=== PATIENT | female | born 1950 ===

== ENCOUNTER 2017-11-18 12:09 | Emergency (ER) | payer OTHER ==
[~2017-11-18] VITALS: Ht 165.1 cm; Wt 72.1 kg
[~2017-11-18 12:09] MED LIST: CIPRO500 MG PO; COZAAR25 MG; FLAGYL500MG PO; GAS RELIEF125 M1 PO; HYZAAR 50-12.51 EACH PO; SYNTHROID88 MCG PO; ZANTAC150 MG PO
== END 2017-11-18 14:25 | disposition home or self-care (01) ==
LOC: ER 12:09
DX: B34.9 Viral infection, unspecified (principal); J11.1 Influenza due to unidentified influenza virus with other respiratory manifestations

== ENCOUNTER 2019-06-05 10:11 | Outpatient (CLI) | payer OTHER | END 2019-06-05 10:24 | disposition home or self-care (01) | LOC: NUCLEAR 10:11 | DX: I20.1 Angina pectoris with documented spasm (principal) ==

== ENCOUNTER 2019-08-19 14:54 | Emergency (ER) | payer OTHER ==
[~2019-08-19] VITALS: Ht 165.1 cm; Wt 72.6 kg
[2019-08-19] MEDS ORDERED: SYNTHROID88 MCG (15:49)
== END 2019-08-19 22:06 | disposition home or self-care (01) ==
LOC: ER 14:54
DX: K57.32 Diverticulitis of large intestine without perforation or abscess without bleeding (principal)

== ENCOUNTER 2021-04-19 09:02 | Outpatient (CLI) | payer OTHER ==
[~2021-04-19 09:02] MED LIST changes: +SYNTHROID88 MCG
== END 2021-04-19 09:10 | disposition home or self-care (01) ==
LOC: EKG 09:02 → LAB 09:02
PROVIDERS: ATTEND Ophthalmology
DX: I10 Essential (primary) hypertension (principal); R07.89 Other chest pain

== ENCOUNTER 2021-10-08 17:23 | Emergency (ER) | payer OTHER ==
[~2021-10-08] VITALS: Ht 165.1 cm; Wt 71.7 kg
== END 2021-10-09 00:45 | disposition home or self-care (01) ==
LOC: ER 17:23
DX: M77.52 Other enthesopathy of left foot and ankle (principal)

== ENCOUNTER → 2022-03-30 | Outpatient (CLI) | payer OTHER | END | disposition home or self-care (01) | LOC: RAD 12:05 | PROVIDERS: ATTEND Physical Medicine & Rehabilitation | DX: M25.571 Pain in right ankle and joints of right foot (principal) ==